=== PATIENT | female | born 1965 | race Caucasian/White ===

== ENCOUNTER 2018-08-18 08:51 | Emergency (ER) | payer OTHER ==
[~2018-08-18] VITALS: Ht 160 cm; Wt 59.1 kg
[~2018-08-18 08:51] MED LIST: 00186-0372-20; ADVAIR IH; ALBUTEROL0.09 MG/A1 IH; ALBUTEROL0.83 MG/ML IH; AMBIEN 5MG TABLE5 MG PO; ATIVAN; CEPHALEXIN500 M1 PO; CLARITIN 1010 MG/TAB PO; CYMBALTA; DILAUDID 2MG TAB2 MG PO; FIORICET 325 MG1 TA1 PO; FIORICET 325 MG1 TAB PO; FLOVENT; LEVSIN 0.10.125 MG/T PO; LISINOPRIL AND1 TA1 PO; NEXIUM 20MG20 MG PEG; PAMELOR 25MG25 MG PO; PERCOCET 325 MG1 TA2 PO; PHENERGAN W/CO120 M1 PO; PHENERGAN W/CO120 ML PO; PREDNISONE20 MG PO; PROBIOTIC FORMU1 CAP PO; SIMVASTATIN10 MG PO; TESSALON PERLE200 MG PO; TOPAMAX50 MG PO; XOPENEX 3 ML3 M1 IH; XOPENEX0.63 MG/3 IH; ZITHROMAX Z PA250 MG PO; ZOCOR 20MG20 MG PO; ZOFRAN 4MG T4 MG/TAB PO
[2018-08-18 08:56] VITALS: TEMP 98.1
[2018-08-18 09:18] LABS: BASO % 0.5 % (0.0-2.0); EOS # 0.1 (0.0-0.7); EOS % 2.2 % (0-4.0); GRAN % 61.9 % (42.2-75.2); HEMATOCRIT 37.3 % (37.0-47.0); HEMOGLOBIN 12.3 g/dl (12.5-16.0); LYMPH % 30.9 % (20.0-51.0); MEAN CELL VOLUME 85 fl (80.0-100.0); MEAN CORPUSCULAR HEMOGLOBIN 28 pg (27.0-31.0); MEAN CORPUSCULAR HGB CONC 33 g/dl (33.0-37.0); MEAN PLATELET VOLUME 8.9 fl (7.4-10.4); MONO # 0.3 (0.1-0.6); MONO % 4.3 % (1.7-9.3); PLATELET COUNT 224 K/mm3 (130-400); RED BLOOD COUNT 4.41 M/mm3 (4.10-5.30); REDCELL DISTRIBUTION WIDTH-CV 14.2 % (11.5-14.5)
[2018-08-18] MEDS ORDERED: HCTZ 25MG TAB25 MG PO (09:20)
[2018-08-18] MEDS ORDERED: LIPITOR 40MG TA40 MG PO (09:20)
[2018-08-18] MEDS ORDERED: PROZAC 20MG20 MG PO (09:21)
[2018-08-18] MEDS ORDERED: PRILOSEC 20MG20 MG PO (09:21)
[2018-08-18] MEDS ORDERED: MAXALT MLT5 MG PO (09:21)
[2018-08-18 09:23] LABS: PROTHROMBIN TIME 11.2 SECONDS (9.7-12.8)
[2018-08-18 09:29] LABS: ALANINE AMINOTRANSFERASE 36 U/L (9-52); ALBUMIN 3.9 gm/dL (3.5-5.0); ALKALINE PHOSPHATASE 102 U/L (50-136); ANION GAP 7 mmol/L (7-16); AST,SGOT 23 U/L (15-37); BILIRUBIN,TOTAL 0.4 mg/dL (0.0-1.0); BLOOD UREA NITROGEN 6 mg/dL (7-17); CARBON DIOXIDE 32 mmol/L (22-30); CHLORIDE 95 mmol/L (98-107); CREATININE, serum 0.75 mg/dL (0.52-1.25); GLUCOSE 98 mg/dL (74-106); SODIUM 135 mmol/L (137-145); TOTAL PROTEIN 7.2 gm/dL (6.4-8.2)
[2018-08-18 09:42] LABS: TROPONIN-I < 0.012 ng/mL (0.000-0.034)
[2018-08-18 12:59] VITALS: BP 131/72; PULSE 84
== END 2018-08-18 13:04 | disposition home or self-care (01) ==
LOC: COL.ER 08:51
PROVIDERS: Emergency Medicine
DX: R07.89 Other chest pain (principal); E87.6 Hypokalemia; I10 Essential (primary) hypertension; J45.909 Unspecified asthma, uncomplicated
CPT/HCPCS: J3480; J7030; Q9967

== ENCOUNTER 2018-11-05 05:34 | Emergency (ER) | payer OTHER ==
[~2018-11-05] VITALS: Ht 157.5 cm; Wt 60.5 kg
[~2018-11-05 05:34] MED LIST changes: +HCTZ 25MG TAB25 MG PO; +LIPITOR 40MG TA40 MG PO; +MAXALT MLT5 MG PO; +PRILOSEC 20MG20 MG PO; +PROZAC 20MG20 MG PO
[2018-11-05 05:38] VITALS: BP 170/90; TEMP 97.5
[2018-11-05] MEDS ORDERED: RT ADVAIR 128 DISKUS (06:05)
[2018-11-05] MEDS ORDERED: IMITREX100 MG PO (06:06)
[2018-11-05] MEDS ORDERED: ASPIRIN 81M81 MG/TA2 PO (06:06)
[2018-11-05] MEDS ORDERED: K-TAB20 (06:07)
[2018-11-05 06:16] LABS: COLLECTION METHOD CLEAN CATCH
[2018-11-05 06:19] LABS: BASO % 0.4 % (0.0-2.0); EOS # 0.3 (0.0-0.7); EOS % 2.3 % (0-4.0); GRAN # 9.7 (1.4-6.5); GRAN % 86.1 % (42.2-75.2); HEMATOCRIT 43.4 % (37.0-47.0); HEMOGLOBIN 14.3 g/dl (12.5-16.0); LYMPH # 0.9 (1.2-3.4); LYMPH % 7.8 % (20.0-51.0); MEAN CELL VOLUME 85 fl (80.0-100.0); MEAN CORPUSCULAR HEMOGLOBIN 28 pg (27.0-31.0); MEAN CORPUSCULAR HGB CONC 33 g/dl (33.0-37.0); MEAN PLATELET VOLUME 9.5 fl (7.4-10.4); MONO # 0.4 (0.1-0.6); MONO % 3.1 % (1.7-9.3); PLATELET COUNT 277 K/mm3 (130-400); RED BLOOD COUNT 5.12 M/mm3 (4.10-5.30); REDCELL DISTRIBUTION WIDTH-CV 14.7 % (11.5-14.5)
[2018-11-05 06:31] LABS: ALBUMIN 4.3 gm/dL (3.5-5.0); BILIRUBIN,TOTAL 0.6 mg/dL (0.0-1.0); C-REACTIVE PROTEIN 1.6 mg/dL (0.0-0.9); CALCIUM 9.4 mg/dL (8.4-10.2); CREATININE, serum 0.76 mg/dL (0.52-1.25); POTASSIUM 3.3 mmol/L (3.4-5.0); TOTAL PROTEIN 7.9 gm/dL (6.4-8.2)
[2018-11-05 06:37] LABS: PH 5 (5-8); URINE APPEARANCE Turbid; URINE BILIRUBIN Negative (NEGATIVE); URINE BLOOD Negative (NEGATIVE); URINE COLOR Amber; URINE GLUCOSE Negative (NEGATIVE); URINE KETONE Negative (NEGATIVE); URINE LEUKOCYTE ESTERASE Negative (NEGATIVE); URINE NITRATE Negative (NEGATIVE); URINE PROTEIN(semi-quant) 3+ (NEGATIVE); URINE UROBILINOGEN Negative (NEGATIVE)
[2018-11-05 06:38] LABS: AMORPHOUS CRYSTAL Present /uL; URINE BACTERIA Rare /hpf; URINE RBC None Seen /hpf
[2018-11-05] MEDS ORDERED: ZOFRAN ODT8 MG PO (07:33)
[2018-11-05 07:45] VITALS: PULSE 91
== END 2018-11-05 07:50 | disposition home or self-care (01) ==
LOC: COL.ER 05:34
PROVIDERS: Emergency Medicine
DX: R11.2 Nausea with vomiting, unspecified (principal); R10.9 Unspecified abdominal pain; Z79.82 Long term (current) use of aspirin
CPT/HCPCS: J0780; J1200; J7030; Q9967

== ENCOUNTER 2019-12-09 14:52 | Emergency (ER) | payer OTHER ==
[~2019-12-09] VITALS: Ht 157.5 cm; Wt 59.1 kg
[~2019-12-09 14:52] MED LIST changes: +ASPIRIN 81M81 MG/TA2 PO; +IMITREX100 MG PO; +K-TAB20; +RT ADVAIR 128 DISKUS; +ZOFRAN ODT8 MG PO
[2019-12-09 15:45] LABS: BASO % 0.4 % (0.0-2.0); EOS # 0.1 (0.0-0.7); EOS % 2.3 % (0-4.0); GRAN # 2.9 (1.4-6.5); GRAN % 57.2 % (42.2-75.2); HEMATOCRIT 39.9 % (37.0-47.0); HEMOGLOBIN 13.1 g/dl (12.5-16.0); LYMPH # 1.8 (1.2-3.4); MEAN CELL VOLUME 83 fl (80.0-100.0); MEAN CORPUSCULAR HEMOGLOBIN 27 pg (27.0-31.0); MEAN CORPUSCULAR HGB CONC 33 g/dl (33.0-37.0); MEAN PLATELET VOLUME 9.4 fl (7.4-10.4); MONO # 0.3 (0.1-0.6); MONO % 4.9 % (1.7-9.3); PLATELET COUNT 188 K/mm3 (130-400); RED BLOOD COUNT 4.82 M/mm3 (4.10-5.30); REDCELL DISTRIBUTION WIDTH-CV 13.8 % (11.5-14.5)
[2019-12-09 16:03] LABS: ERYTHROCYTE SEDIMENTATION RATE 22 mm/hr (0-30)
[2019-12-09 16:19] LABS: ALANINE AMINOTRANSFERASE 7 U/L (9-52); ALBUMIN 4.3 gm/dL (3.5-5.0); ALKALINE PHOSPHATASE 102 U/L (50-136); ANION GAP 9 mmol/L (7-16); AST,SGOT 20 U/L (15-37); BILIRUBIN,TOTAL 0.4 mg/dL (0.0-1.0); BLOOD UREA NITROGEN 5 mg/dL (7-17); C-REACTIVE PROTEIN 1.1 mg/dL (0.0-0.9); CALCIUM 9.2 mg/dL (8.4-10.2); CARBON DIOXIDE 31 mmol/L (22-30); CHLORIDE 100 mmol/L (98-107); CREATININE, serum 0.75 (0.52-1.25); GLUCOSE 94 mg/dL (74-106); POTASSIUM 3.2 mmol/L (3.4-5.0); SODIUM 140 mmol/L (137-145); TOTAL PROTEIN 7.5 gm/dL (6.4-8.2)
[2019-12-09 16:26] LABS: TROPONIN-I < 0.012 ng/mL (0.000-0.035)
[2019-12-09] MEDS ORDERED: K-DUR20 MEQ PO (16:42)
[2019-12-09] MEDS ORDERED: NORVASC 5MG5 MG/TAB PO (16:42)
[2019-12-09 16:51] VITALS: BP 138/87; PULSE 73; TEMP 98
== END 2019-12-09 17:45 | disposition home or self-care (01) ==
LOC: COL.ER 14:52
PROVIDERS: Emergency Medicine
DX: I10 Essential (primary) hypertension (principal); R51 Headache; E87.6 Hypokalemia; J45.909 Unspecified asthma, uncomplicated; E78.00 Pure hypercholesterolemia, unspecified; Z79.51 Long term (current) use of inhaled steroids; Z79.82 Long term (current) use of aspirin; Z86.69 Personal history of other diseases of the nervous system and sense organs
CPT/HCPCS: J2405; J3010; J7030

== ENCOUNTER 2021-09-28 06:58 | Day surgery (SDC) | payer BC, OTHER ==
[~2021-09-28] VITALS: Ht 160 cm; Wt 58.3 kg
[~2021-09-28 06:58] MED LIST changes: +K-DUR20 MEQ PO; +NORVASC 5MG5 MG/TAB PO; +VENTOLIN0.09 MG IH; +ZOFRAN ODT4 MG PO
[2021-09-28] MEDS ORDERED: NORVASC 5MG5 MG/TAB PO (07:34)
[2021-09-28] MEDS ORDERED: RT ADVAIR 528 DISKUS IH (07:34)
[2021-09-28] MEDS ORDERED: PROAIR RES117 MCG/Ac IH (07:34)
[2021-09-28] MEDS ORDERED: KLONOPIN 0.5MG0.5 MG PO (07:35)
[2021-09-28] MEDS ORDERED: LIPITOR20 MG PO (07:35)
[2021-09-28] MEDS ORDERED: ZYRTEC10MGSGL PO (07:35)
[2021-09-28] MEDS ORDERED: COLESTID 1GM1 G PO (07:36)
[2021-09-28] MEDS ORDERED: CYANOCOBAL1000 MCG/M IM (07:36)
[2021-09-28] MEDS ORDERED: NUPERCAINAL OIN30 GM RC (07:37)
[2021-09-28] MEDS ORDERED: VALIUM 5MG T5 MG/TAB PO (07:37)
[2021-09-28] MEDS ORDERED: LEVBID0.375 MG PO (07:38)
[2021-09-28] MEDS ORDERED: HCTZ 25MG TAB25 MG PO (07:38)
[2021-09-28] MEDS ORDERED: NIZORAL SHAMPO120 M1 TP (07:39)
[2021-09-28] MEDS ORDERED: XOPENEX HF0.045 MG/A IH (07:39)
[2021-09-28] MEDS ORDERED: SINGULAIR 110 MG/TAB PO (07:40)
[2021-09-28] MEDS ORDERED: PRILOSEC 20MG20 MG PO (07:50)
[2021-09-28] MEDS ORDERED: ULTRAM ER100 MG (07:51)
[2021-09-28] MEDS ORDERED: ULTRAM 50MG TAB50 MG PO (07:51)
[2021-09-28] MEDS ORDERED: PROZAC40 MG PO (07:51)
[2021-09-28] MEDS ORDERED: IMITREX100 MG PO (07:51)
[2021-09-28 07:52] VITALS: BP 136/78; PULSE 81; TEMP 97.7
[2021-09-28 07:55] LABS: HEMOGLOBIN 11.4 g/dl (12.5-16.0); MEAN CELL VOLUME 84 fl (80.0-100.0); MEAN CORPUSCULAR HEMOGLOBIN 27 pg (27.0-31.0); MEAN CORPUSCULAR HGB CONC 32 g/dl (33.0-37.0); MEAN PLATELET VOLUME 8.5 fl (7.4-10.4); PLATELET COUNT 73 K/mm3 (130-400); RED BLOOD COUNT 4.29 M/mm3 (4.10-5.30); REDCELL DISTRIBUTION WIDTH-CV 16.3 % (11.5-14.5)
[2021-09-28 07:59] LABS: HEMATOCRIT 35.9 % (37.0-47.0)
[2021-09-28 08:22] LABS: EOSINOPHIL 2 % (0-4); NEUTROPHILS 15 % (42.0-75.2)
[2021-09-28 08:23] LABS: ANISOCYTOSIS 1+; HYPOCHROMIA 1+; LYMPHOCYTE 67 % (20.0-51.0); PLATELET ESTIMATE DECREASED (NORMAL)
[2021-09-28 09:40] VITALS: BP 140/89; PULSE 72; TEMP 97.7
--- NOTE | 2021-09-28 09:40 | NUR ---
Patient arrived back into [facility]. at bedside. Patient awakens to voice. Deneis nausea/vomting. Having tenderness in the left hip. Report recieved from KILO Wilde.
[2021-09-28 09:55] VITALS: BP 147/85; PULSE 73
[2021-09-28 10:10] VITALS: BP 137/97; PULSE 77
--- NOTE | 2021-09-28 10:13 | NUR ---
Patient laid flat from 0940 to 0950.
[2021-09-28 10:25] VITALS: BP 153/85; PULSE 71
--- NOTE | 2021-09-28 10:30 | NUR ---
Went through discharge instructions with patient and her . They verbalized understanding to discharge instructions. IV removed with no complications. Dressing is clean, dry, and intact. No drainage noted.
[2021-09-28 10:34] LABS: PATHOLOGY DIFF REVIEW OK
--- NOTE | 2021-09-28 10:40 | NUR ---
Patient escorted to patient entrance via wheelchair. along side. Patient left in personal vehicle in the care of her .
[2021-09-28 13:55] VITALS: BP 140/89; PULSE 73
== END 2021-09-28 10:40 | disposition home or self-care (01) ==
LOC: SDCO 06:58
PROVIDERS: Pathology Anatomic Pathology & Clinical Pathology
DX: C91.40 Hairy cell leukemia not having achieved remission (principal); D70.9 Neutropenia, unspecified; D50.9 Iron deficiency anemia, unspecified; I10 Essential (primary) hypertension; G43.909 Migraine, unspecified, not intractable, without status migrainosus; Q43.3 Congenital malformations of intestinal fixation; E78.00 Pure hypercholesterolemia, unspecified; M19.90 Unspecified osteoarthritis, unspecified site; K58.0 Irritable bowel syndrome with diarrhea; J45.20 Mild intermittent asthma, uncomplicated; E78.2 Mixed hyperlipidemia; K21.9 Gastro-esophageal reflux disease without esophagitis; F41.9 Anxiety disorder, unspecified; F32.A Depression, unspecified; Z90.710 Acquired absence of both cervix and uterus; Z79.899 Other long term (current) drug therapy; Z83.3 Family history of diabetes mellitus; Z80.8 Family history of malignant neoplasm of other organs or systems; Z80.3 Family history of malignant neoplasm of breast
CPT/HCPCS: J2250; J2704; J7120

== ENCOUNTER 2021-12-18 06:23 | Emergency (ER) | payer BC, OTHER ==
[~2021-12-18] VITALS: Ht 157.5 cm; Wt 59.1 kg
[~2021-12-18 06:23] MED LIST changes: +COLESTID 1GM1 G PO; +CYANOCOBAL1000 MCG/M IM; +KLONOPIN 0.5MG0.5 MG PO; +LEVBID0.375 MG PO; +LIPITOR20 MG PO; +NIZORAL SHAMPO120 M1 TP; +NUPERCAINAL OIN30 GM RC; +PROAIR RES117 MCG/Ac IH; +PROZAC40 MG PO; +RT ADVAIR 528 DISKUS IH; +SINGULAIR 110 MG/TAB PO; +ULTRAM 50MG TAB50 MG PO; +ULTRAM ER100 MG; +VALIUM 5MG T5 MG/TAB PO; +XOPENEX HF0.045 MG/A IH; +ZYRTEC10MGSGL PO
[2021-12-18 06:38] VITALS: BP 140/91; TEMP 98.5
[2021-12-18 08:06] VITALS: PULSE 95
== END 2021-12-18 08:06 | disposition home or self-care (01) ==
LOC: COL.ER 06:23
DX: S00.83XA Contusion of other part of head, initial encounter (principal); C91.40 Hairy cell leukemia not having achieved remission; J45.909 Unspecified asthma, uncomplicated; I10 Essential (primary) hypertension; Z79.899 Other long term (current) drug therapy; W22.8XXA Striking against or struck by other objects, initial encounter

== ENCOUNTER → 2022-03-01 | Outpatient (CLI) | payer BC, OTHER | LOC: COL.RAD 12:17 | DX: M19.012 Primary osteoarthritis, left shoulder (principal); M75.52 Bursitis of left shoulder ==

== ENCOUNTER → 2022-04-15 | Outpatient (CLI) | payer BC, OTHER | LOC: COL.RAD 08:41 | DX: R16.1 Splenomegaly, not elsewhere classified (principal) ==

== ENCOUNTER 2022-04-26 07:06 | Day surgery (SDC) | payer BC, OTHER ==
[~2022-04-26] VITALS: Ht 157.5 cm; Wt 56.9 kg
[2022-04-26 07:30] VITALS: BP 119/76; PULSE 90; TEMP 97.7
[2022-04-26 07:57] LABS: BASO % 0.3 % (0.0-2.0); EOS # 0.1 K/mm3 (0.0-0.7); EOS % 0.9 % (0.0-4.0); GRAN # 5.7 K/mm3 (1.4-6.5); GRAN % 84.1 % (42.2-75.2); HEMATOCRIT 39.7 % (37.0-47.0); HEMOGLOBIN 13.3 g/dl (12.5-16.0); LYMPH # 0.5 K/mm3 (1.2-3.4); LYMPH % 6.8 % (20.0-51.0); MEAN CELL VOLUME 85 fl (80.0-100.0); MEAN CORPUSCULAR HEMOGLOBIN 29 pg (27-31); MEAN CORPUSCULAR HGB CONC 34 g/dl (33.0-37.0); MEAN PLATELET VOLUME 9.6 fl (7.4-10.4); MONO # 0.5 K/mm3 (0.1-0.6); MONO % 7.6 % (1.7-9.3); PLATELET COUNT 171 K/mm3 (130-400); RED BLOOD COUNT 4.67 M/mm3 (4.10-5.30); REDCELL DISTRIBUTION WIDTH-CV 14.2 % (11.5-14.5)
[2022-04-26 10:00] VITALS: BP 113/44; PULSE 66; TEMP 97.3
[2022-04-26 10:15] VITALS: BP 116/45; PULSE 70
[2022-04-26 10:30] VITALS: BP 113/53; PULSE 68
[2022-04-26 13:42] VITALS: BP 109/87; PULSE 77
--- NOTE | 2022-04-26 13:43 | NUR ---
1000: Patient arrived back into [facility] from PACU. Patient is alert and awake. Vital signs stable on room air. Report received from KILO Wilde. Patient requesting pepsi and blueberry muffins. Patient denies nausea and pain. at bedside. Call light left within reach. 1015: Patient tolerated food and drink well. Denies pain or nausea. 1030: Patient continues to do well. 1045: Went through discharge instructions with patient and friend. Escorted to patient entrance via wheelchair. Patient got into personal vehicle unassisted and left in the care of their family.
== END 2022-04-26 10:45 | disposition home or self-care (01) ==
LOC: SDCO 07:06
PROVIDERS: Pathology Anatomic Pathology & Clinical Pathology
DX: C91.40 Hairy cell leukemia not having achieved remission (principal); K21.9 Gastro-esophageal reflux disease without esophagitis; Z28.310 Unvaccinated for COVID-19; Z28.9 Immunization not carried out for unspecified reason
CPT/HCPCS: J0330; J2704; J7120

== ENCOUNTER 2023-08-26 19:51 | Emergency (ER) | payer BC, OTHER ==
[~2023-08-26] VITALS: Ht 160 cm; Wt 58.6 kg
[2023-08-26 19:54] VITALS: TEMP 98.2
[2023-08-26 20:20] LABS: COLLECTION METHOD CLEAN CATCH
[2023-08-26 20:26] LABS: PH 6.5 (5.0-8.5); URINE APPEARANCE Cloudy (CLEAR/HAZY); URINE BLOOD 3+ (NEGATIVE); URINE COLOR Yellow (YELLOW); URINE GLUCOSE Negative (NEGATIVE); URINE KETONE Negative (NEGATIVE); URINE NITRATE Negative (NEGATIVE); URINE PROTEIN(semi-quant) TRACE (NEGATIVE); URINE UROBILINOGEN 0.2 E.U/dL (0.2-1.0)
[2023-08-26 20:33] LABS: SQUAMOUS EPITHELIAL 0-2 /hpf (0-10); URINE BACTERIA Rare /hpf (NONE SEEN); URINE RBC 0-2 /hpf (0-2)
[2023-08-26] MEDS ORDERED: OMNICEF 300MG300 MG PO (20:50)
[2023-08-26 21:24] VITALS: BP 130/75; PULSE 75
== END 2023-08-26 21:24 | disposition home or self-care (01) ==
LOC: COL.ER 19:51
PROVIDERS: Nurse Practitioner Primary Care
DX: N30.90 Cystitis, unspecified without hematuria (principal); Z88.0 Allergy status to penicillin; Z88.6 Allergy status to analgesic agent; Z28.310 Unvaccinated for COVID-19
CPT/HCPCS: J0696; J1885